=== PATIENT | female | born 1960 | race Caucasian/White ===

== ENCOUNTER → 2017-09-01 | Outpatient (CLI) | payer BC ==
[~2017-09-01] MED LIST: Abilify2 MG; B Complete1 EACH PO; CALCIUM + D3 E1 EACH PO; CALCIUM 600 MG1 EACH; DEXA4; Dexamethasone4 MG PO; FISH OIL 1,0001 EAC1; FISH1000 PO; HYDR1TAB94 PO; LAVAP17G PO; LORA1 PO; OMEG1CAP30; OXYC5 PO; PHENA200 PO; POLYOX WSR-3011 GM MC; RXPHEN200 PO; SULTRIDS PO; VENL150ER; VENL150ER PO; VITAMIN B12-FO1 EACH PO; VITAMIN D35000 UNI1 PO; ZOLP5
[2017-09-01 11:34] LABS: BASOPHILS ABSOLUTE AUTO 0.06 K/mm3 (0.00-0.23); BASOPHILS PERCENT AUTO 1 % (0-2); EOSINOPHILS ABSOLUTE AUTO 0.22 K/mm3 (0.00-0.68); EOSINOPHILS PERCENT AUTO 2 % (0-6); Hematocrit 47.4 % (33.0-51.0); Hemoglobin 16.7 g/dL (11.5-16.0); IMMATURE GRAN ABSOLUTE AUTO 0.05 K/mm3 (0.00-0.10); IMMATURE GRAN PERCENT AUTO 0 % (0-1); LYMPHOCYTES ABSOLUTE AUTO 2.11 K/mm3 (0.84-5.20); LYMPHOCYTES PERCENT AUTO 17 % (21-46); MONOCYTES ABSOLUTE AUTO 0.71 K/mm3 (0.16-1.47); MONOCYTES PERCENT AUTO 6 % (4-13); Mean Corpuscular HGB 30.6 pg (26.0-34.0); Mean Corpuscular HGB Conc 35.2 g/dL (31.5-36.5); Mean Corpuscular Volume 87 fL (80-100); Mean Platelet Volume 8.6 fL (9.1-12.4); NEUTROPHILS ABSOLUTE AUTO 9.67 K/mm3 (1.96-9.15); NEUTROPHILS PERCENT AUTO 75 % (41-73); Platelet Count 416 K/mm3 (150-400); RDW Coefficient Variation 11.8 % (11.7-14.2); RDW Standard Deviation 37.3 fL (35.1-46.3); Red Blood Cell Count 5.46 M/mm3 (3.80-5.20); White Blood Cell Count 12.82 K/mm3 (4.00-11.30)
[2017-09-01 11:45] LABS: Alanine Aminotransfer (ALT/SGP 61 U/L (12-78); Albumin, Blood 3.6 g/dL (3.4-5.0); Albumin/Globulin Ratio 0.7 (0.8-1.8); Alk Phos 142 U/L (40-126); Anion Gap 11 mmol/L (6-16); Aspartate Aminotrans (AST/SGOT 37 U/L (12-37); Bilirubin, Total 0.5 mg/dL (0.1-1.0); Blood Urea Nitrogen 11 mg/dL (8-24); Bun/Creatinine Ratio 12.6 (12.0-20.0); CO2, Blood 30 mmol/L (21-32); Calcium, Blood 10.4 mg/dL (8.5-10.1); Chloride, Blood 101 mmol/L (98-108); Creatinine, Blood 0.87 mg/dL (0.40-1.00); Globulin, Blood 5.4 g/dL (2.2-4.0); Glomerular Filtration Rate >60 (60-); Glucose, Blood 110 mg/dL (70-99); Potassium, Blood 3.8 mmol/L (3.5-5.5); Sodium, Blood 142 mmol/L (136-145)
== END | disposition home or self-care (01) ==
LOC: LAB 11:27
PROVIDERS: Physician Assistant Medical
DX: E86.0 Dehydration (principal)
CPT/HCPCS: 80053; 85025

== ENCOUNTER → 2018-06-16 | Outpatient (CLI) | payer BC | END | disposition home or self-care (01) | LOC: LAB 10:25 → LAB SHORT 10:25 | DX: A49.9 Bacterial infection, unspecified (principal) | CPT/HCPCS: 87070; 87205 ==

== ENCOUNTER 2019-01-31 06:47 | Day surgery (SDC) | payer BC ==
[~2019-01-31] VITALS: Ht 160 cm; Wt 67.2 kg
--- NOTE | 2019-01-31 09:06 | NUR ---
01/31/19 0906 Albina Keith PT STS 5/10 PAIN FOR SORE THROAT. PT REFUSED WARM FLUIDS OR ANY OTHER INTERVENTIONS AT THIS TIME.
== END 2019-01-31 09:17 | disposition home or self-care (01) ==
LOC: ORSCSDS 06:47
PROVIDERS: Internal Medicine Gastroenterology
PROC: 0DJ08ZZ Inspection of Upper Intestinal Tract, Via Natural or Artificial Opening Endoscopic (ICD-10-PCS; principal; 2019-01-31 08:00)
PROC: 0DJD8ZZ Inspection of Lower Intestinal Tract, Via Natural or Artificial Opening Endoscopic (ICD-10-PCS; principal; 2019-01-31 08:00)
DX: K21.9 Gastro-esophageal reflux disease without esophagitis (principal); Z86.010 Personal history of colon polyps; K44.9 Diaphragmatic hernia without obstruction or gangrene; K64.8 Other hemorrhoids; Z80.9 Family history of malignant neoplasm, unspecified
CPT/HCPCS: J0461; J2405; J2704; J7120

== ENCOUNTER 2020-08-01 06:15 | Day surgery (SDC) | payer BC, OTHER ==
[~2020-08-01] VITALS: Ht 160 cm; Wt 64.5 kg
[~2020-08-01 06:15] MED LIST changes: -Abilify2 MG; +Abilify2 MG PO; +BASAGLAR K100 UNIT/1 SC; +LISI20 PO; +PANT40 PO; -POLYOX WSR-3011 GM MC; +POLYOX WSR-3011 GM PO; +ZOLP5 PO
--- NOTE | 2020-08-01 06:55 | NUR ---
Ambulatory in Day Surgery History, Chart, Medications and Allergies reviewed before start of procedure.Patient confirms NPO status and agrees with scheduled surgery. Patient reports completing Chlorhexadine shower X2 prior to admission to hospital.Surgical site prepped with 2% Chlorhexidine cloth wipe. Lungs clear T/O to Auscultation. Patient States Post-Procedure ride home has been arranged WITH
--- NOTE | 2020-08-01 08:45 | NUR ---
ARRIVED INTO STEP VSS DRESSINGS INTACT RECIEVED REPORT FROM Karri CUELLO
--- NOTE | 2020-08-01 09:09 | NUR ---
DRESSED READY TO GO WAITING FOR VOLUNTEER AND WHEELCHAIR. Discharge instructions reviewed with patient. Patient verbalizes understanding. Copy given to patient to take home. Patient States Post-Procedure ride home has been arranged. Discharged via wheelchair to private car for ride home.
== END 2020-08-01 09:15 | disposition home or self-care (01) ==
LOC: ORSCMMR 06:15 → ORD 07:30 → ORSCMMR 07:30
PROVIDERS: Surgery
PROC: 0JH60WZ Insertion of Totally Implantable Vascular Access Device into Chest Subcutaneous Tissue and Fascia, Open Approach (ICD-10-PCS; principal; 2020-08-01 07:30)
DX: C25.9 Malignant neoplasm of pancreas, unspecified (principal); Z78.9 Other specified health status; K21.9 Gastro-esophageal reflux disease without esophagitis; F32.9 Major depressive disorder, single episode, unspecified; E11.9 Type 2 diabetes mellitus without complications; Z79.899 Other long term (current) drug therapy
CPT/HCPCS: 77001; 82947; C1788; J0690; J1100; J1642; J2250; J2370; J2405; J2704; J3010; J7120

== ENCOUNTER → 2020-09-16 | Outpatient (CLI) | payer BC, OTHER ==
[2020-09-16 10:29] LABS: Alanine Aminotransfer (ALT/SGP 45 U/L (12-78); Albumin, Blood 2.6 g/dL (3.4-5.0); Albumin/Globulin Ratio 0.7 (0.8-1.8); Alk Phos 237 U/L (50-136); Anion Gap 8 mmol/L (6-16); Aspartate Aminotrans (AST/SGOT 42 U/L (12-37); Bilirubin, Total 0.2 mg/dL (0.1-1.0); Blood Urea Nitrogen 4 mg/dL (8-24); Bun/Creatinine Ratio 6.6 (12.0-20.0); CO2, Blood 26 mmol/L (21-32); Calcium, Blood 8.3 mg/dL (8.5-10.1); Chloride, Blood 106 mmol/L (98-108); Creatinine, Blood 0.61 mg/dL (0.40-1.00); Globulin, Blood 3.7 g/dL (2.2-4.0); Glomerular Filtration Rate >60 (60-); Glucose, Blood 210 mg/dL (70-99); Potassium, Blood 2.7 mmol/L (3.5-5.5); Sodium, Blood 140 mmol/L (136-145); Total Protein, Blood 6.3 g/dL (6.4-8.2)
== END | disposition home or self-care (01) ==
LOC: LAB SHORT 09:46 → LAB 09:46
PROVIDERS: Registered Nurse Oncology
DX: E87.6 Hypokalemia (principal)
CPT/HCPCS: 80053

== ENCOUNTER → 2022-05-27 | Outpatient (CLI) | payer BC, OTHER | END | disposition home or self-care (01) | LOC: LAB SHORT 12:07 | DX: L30.8 Other specified dermatitis (principal) | CPT/HCPCS: 88305; 88312 ==

== ENCOUNTER → 2022-08-26 | Outpatient (CLI) | payer BC, OTHER | END | disposition home or self-care (01) | LOC: PLD 15:07 → LAB SHORT 15:07 | DX: L30.8 Other specified dermatitis (principal) | CPT/HCPCS: 88305; 88312 ==

== ENCOUNTER → 2023-01-14 | Outpatient (CLI) | payer BC, OTHER | LOC: LAB SHORT 15:02 → PLD 15:02 → LAB 15:02 | DX: D04.72 Carcinoma in situ of skin of left lower limb, including hip (principal); L57.0 Actinic keratosis | CPT/HCPCS: 88305 ==

== ENCOUNTER → 2023-02-22 | Outpatient (CLI) | payer OTHER | END | disposition home or self-care (01) | LOC: PLD 14:25 → LAB SHORT 14:25 | DX: C44.629 Squamous cell carcinoma of skin of left upper limb, including shoulder (principal) | CPT/HCPCS: 88305 ==

== ENCOUNTER 2023-04-20 10:09 | Day surgery (SDC) | payer OTHER ==
[~2023-04-20] VITALS: Ht 160 cm; Wt 61.0 kg
[2023-04-20] MEDS ORDERED: FOLI1 (10:30)
[2023-04-20] MEDS ORDERED: VENL150ER (10:30)
[2023-04-20] MEDS ORDERED: METTREX2.5 (10:31)
--- NOTE | 2023-04-20 11:39 | NUR ---
04/20/23 1139 RENA OATES PT NOT REPORTED NO BOWEL MOVEMENT AFTER PREP, ENEMA GIVEN, STILL NOT CLEAR. NOTIFIED DR SWANSON, PER HIS ORDER WE WILL PROCEED WITH UPPER, COLONOSCOPY IS TO BE SCHEDULED FOR TOMORROW. 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 PT VERBALIZED UNDERSTANDING AND DENIED ANY FURTHER QUESTIONS OR CONCERNS.
[2023-04-20 12:11] VITALS: BP 100/67
== END 2023-04-20 12:11 | disposition home or self-care (01) ==
LOC: ORSCSDS 10:09
PROVIDERS: Internal Medicine Gastroenterology
PROC: 0DBA8ZX Excision of Jejunum, Via Natural or Artificial Opening Endoscopic, Diagnostic (ICD-10-PCS; principal; 2023-04-20 11:15)
PROC: 0DB98ZX Excision of Duodenum, Via Natural or Artificial Opening Endoscopic, Diagnostic (ICD-10-PCS; principal; 2023-04-20 11:15)
DX: Z15.09 Genetic susceptibility to other malignant neoplasm (principal); Z85.07 Personal history of malignant neoplasm of pancreas; Z85.42 Personal history of malignant neoplasm of other parts of uterus; Z85.828 Personal history of other malignant neoplasm of skin; Z86.010 Personal history of colon polyps; F32.A Depression, unspecified; Z79.4 Long term (current) use of insulin; Z79.899 Other long term (current) drug therapy
CPT/HCPCS: 82947; 88305; 88342; J0461; J2001; J2405; J2704; J7120; Q9968

== ENCOUNTER 2023-04-21 11:30 | Day surgery (SDC) | payer OTHER ==
[~2023-04-21] VITALS: Ht 160 cm; Wt 60.2 kg
[~2023-04-21 11:30] MED LIST changes: +FOLI1; +METTREX2.5
--- NOTE | 2023-04-21 13:33 | NUR ---
04/21/23 1333 Marilyn Ferguson PROCEDURE ABORTED DUE TO POOR PREP, ABORTED AT RECTUM. CHANGED TO FLEX SIGMOIDOSCOPY
[2023-04-21 13:52] VITALS: BP 117/78
== END 2023-04-21 14:01 | disposition home or self-care (01) ==
LOC: ORSCSDS 11:30
PROVIDERS: Internal Medicine Gastroenterology
PROC: 0DJD8ZZ Inspection of Lower Intestinal Tract, Via Natural or Artificial Opening Endoscopic (ICD-10-PCS; principal; 2023-04-21 12:45)
DX: Z15.09 Genetic susceptibility to other malignant neoplasm (principal); Z86.010 Personal history of colon polyps; Z85.42 Personal history of malignant neoplasm of other parts of uterus; Z85.07 Personal history of malignant neoplasm of pancreas
CPT/HCPCS: 82947; J2704; J7120

== ENCOUNTER 2023-10-12 06:34 | Day surgery (SDC) | payer OTHER ==
[~2023-10-12] VITALS: Ht 157.5 cm; Wt 63.5 kg
[2023-10-12] VITALS (18 sets, daily range): BP systolic 105–141; BP diastolic 69–88
[~2023-10-12 06:34] MED LIST changes: +CeFAZolin Sodium 2,000 MG in NS 100 ML IV SCH; -FOLI1; +FOLI1 PO; +INSULANI SC; +KLOR-CON 1010 ME9 PO; +Lactated Ringer's 1,000 ML IV SCH; -METTREX2.5; +METTREX2.5 PO
[2023-10-12] MEDS ORDERED: Bupivacaine 0.5% HCl 5 MG/ML 30MLVIAL ONE (07:09)
--- NOTE | 2023-10-12 07:17 | NUR ---
Wheelchaired into Day Surgery. History, Chart, Medications and Allergies reviewed before start of procedure. Pre-Op teaching done. Pt verbalizes understanding.
[2023-10-12] MEDS ORDERED: propofoL 20 ML IV ONE (07:24)
[2023-10-12] MEDS ORDERED: FentaNYL Citrate 50 MCG/ML 5 ML Injection ONE (07:24)
[2023-10-12] MEDS ORDERED: Ondansetron HCl 2 MG / ML 2ML Vial ONE ×2 (07:25→09:06)
[2023-10-12] MEDS ORDERED: Dexamethasone Sod Phos 10 MG/ML 1ML VIAL ONE (07:25)
[2023-10-12] MEDS ORDERED: Rocuronium Bromide 10 MG/ML 5ML Injection IV ONE (07:27)
[2023-10-12] MEDS ORDERED: Phenylephrine HCl 100 MCG/ML-NS 10MLSYR (1MG/10ML) ONE (07:40)
[2023-10-12] MEDS ORDERED: ePHEDrine Sulfate 50 MG/ML 1ML Injection ONE (08:05)
[2023-10-12] MEDS ORDERED: HYDROcodone 5-APAP 325 TAB PO PRN (08:55)
[2023-10-12] MEDS ORDERED: FentaNYL Citrate 50 MCG/ML 2 ML Injection IV PRN (08:55)
[2023-10-12] MEDS ORDERED: Sugammadex Sodium 200 MG/2ML SDV (100 MG/ML) ONE (08:59)
[2023-10-12] MEDS ORDERED: ARIPiprazole 2 MG Tablet PO SCH (09:00)
[2023-10-12] MEDS ORDERED: Ondansetron HCl 2 MG / ML 2ML Vial IV PRN (09:00)
[2023-10-12] MEDS ORDERED: Folic Acid 1 MG TAB PO SCH (09:00)
[2023-10-12] MEDS ORDERED: Docusate Sodium 100 MG Cap PO SCH (09:00)
[2023-10-12] MEDS ORDERED: Lisinopril 20 MG Tab PO SCH (09:00)
[2023-10-12] MEDS ORDERED: Ondansetron 4 MG TAB PO PRN (09:00)
[2023-10-12] MEDS ORDERED: Potassium Chloride 10 Meq Tablet SA PO SCH (09:00)
[2023-10-12] MEDS ORDERED: Venlafaxine HCl 75 MG CapCR PO SCH (09:00)
[2023-10-12] MEDS ORDERED: Lactated Ringer's 1,000 ML IV SCH (09:00)
[2023-10-12] MEDS ORDERED: Prochlorperazine Edisylate 10 mg Vial ONE (09:14)
[2023-10-12] MEDS ORDERED: Insulin Regular 100 UNIT/ML 10ML Vial SC SCH (12:00)
--- NOTE | 2023-10-12 16:02 | NUR ---
SHIFT SUMMARY PATIENT POD0 FOR INCISIONAL HERNIA /W MESH. MEDIPORE DRESSING TO MID UPPER ABD. C/D/I. MILD DISTENTION IN ABD NOTED. PATIENT BLADDER SCANNED FOR 682 VOIDED 300 SPONTANEOUSLY. TOLERATED SOME SIPS AND CHIPS. DENIES PAIN, DENIES NAUSEA. PATIENT HAS BEEN DROWSY TODAY. IS ABLE TO AMBULATE WITH FWW AND 1 ASSIST. PATIENT IS AOX4, BED ALARM IS ON FOR SAFETY. SCDS IN PLACE. CALL LIGHT IN REACH.
--- NOTE | 2023-10-12 16:13 | NUR ---
Pt. is awake in bed and welcomes my visit. Pt. is pleasant. Facilitated a life review and listen with empathy and a calming presence. Pt. verbalized about the relatively recent loss of her only son. Again listen with a pastoral perspective. Considered matters of zuri and belief. Pt. displayed evidence of being at peace with God, but also verbalized her intention to work at recovery as much as she can. Prayed with the Pt. Pt. verbalized gratitude for the spiritual care visit and welcomed this linoleum floor layer to return.
[2023-10-13 00:15] VITALS: BP 125/83
[2023-10-13 04:27] VITALS: BP 125/79
--- NOTE | 2023-10-13 05:30 | NUR ---
SHIFT SUMMARY NO ACUTE CHANGES TO REPORT OVERNIGHT. PT POD 0 HERNIA REPAIR. PT HAS RESTED T/O THE SHIFT, SHE DENIES PAIN. SURGICAL SITE WNL. SHE HAS BEEN UP AND AMBULATING AND IS VOIDING. POST OP VITALS STABLE. BED IN LOWEST POSITION, CALL LIGHT WITHIN REACH.
[2023-10-13 05:59] LABS: BASOPHILS ABSOLUTE AUTO 0.06 K/mm3 (0.00-0.23); BASOPHILS PERCENT AUTO 1 % (0-2); EOSINOPHILS ABSOLUTE AUTO 0.04 K/mm3 (0.00-0.68); EOSINOPHILS PERCENT AUTO 0 % (0-6); Hematocrit 25.7 % (33.0-51.0); Hemoglobin 8.9 g/dL (11.5-16.0); IMMATURE GRAN ABSOLUTE AUTO 0.06 K/mm3 (0.00-0.10); IMMATURE GRAN PERCENT AUTO 1 % (0-1); LYMPHOCYTES ABSOLUTE AUTO 1.36 K/mm3 (0.84-5.20); LYMPHOCYTES PERCENT AUTO 13 % (21-46); MONOCYTES ABSOLUTE AUTO 0.42 K/mm3 (0.16-1.47); MONOCYTES PERCENT AUTO 4 % (4-13); Mean Corpuscular HGB 35.3 pg (26.0-34.0); Mean Corpuscular HGB Conc 34.6 g/dL (31.5-36.5); Mean Corpuscular Volume 102 fL (80-100); Mean Platelet Volume 8.9 fL (9.1-12.4); NEUTROPHILS ABSOLUTE AUTO 8.26 K/mm3 (1.96-9.15); NEUTROPHILS PERCENT AUTO 81 % (41-73); Platelet Count 163 K/mm3 (150-400); RDW Coefficient Variation 14.4 % (11.7-14.2); RDW Standard Deviation 52.9 fL (35.1-46.3); Red Blood Cell Count 2.52 M/mm3 (3.80-5.20)
[2023-10-13 06:31] LABS: Bun/Creatinine Ratio 12.5 (12.0-20.0); Calcium, Blood 8.8 mg/dL (8.5-10.1); Creatinine, Blood 0.96 mg/dL (0.40-1.00); Potassium, Blood 4.3 mmol/L (3.5-5.5)
[2023-10-13 07:06] VITALS: BP 120/74
[2023-10-13] MEDS ORDERED: Insulin Regular 100 UNIT/ML 10ML Vial SC SCH (07:30)
[2023-10-13 14:42] VITALS: BP 108/71
--- NOTE | 2023-10-13 17:26 | NUR ---
DISCHARGE NOTE PT WHEELED OUT VIA WHEELCHAIR TO FRIEND WHO WAS DRIVING HER HOME. VSS. DENIES N/V. INCISION SITE COVERED WITH STERI STRIP, FREE OF DRAINAGE. PT PASSED A SMALL BOWEL MOVEMENT JUST PRIOR TO CHANGING INTO HER PERSONAL CLOTHING. EATING DRINKING VOIDING EASILY. HAS DECLINED PAIN MEDICATION T/O SHIFT, STATES THAT SHE IS COMFORTABLE.
== END 2023-10-13 17:15 | disposition home or self-care (01) ==
LOC: ORSCMMR 06:34 → ORD 07:30 → SURS 09:36 → ORSCMMR 10-13 17:15
PROVIDERS: Surgery
PROC: 0WUF0JZ Supplement Abdominal Wall with Synthetic Substitute, Open Approach (ICD-10-PCS; principal; 2023-10-12 07:30)
DX: K43.2 Incisional hernia without obstruction or gangrene (principal); I10 Essential (primary) hypertension; E11.9 Type 2 diabetes mellitus without complications; Z79.4 Long term (current) use of insulin; Z79.899 Other long term (current) drug therapy; Z85.07 Personal history of malignant neoplasm of pancreas; Z85.42 Personal history of malignant neoplasm of other parts of uterus
CPT/HCPCS: 36415; 80048; 82947; 85025; A9270; C1781; J0690; J0780; J1100; J2371; J2405; J2704; J3010; J7120

== ENCOUNTER 2024-03-27 10:41 | Day surgery (SDC) | payer OTHER ==
[~2024-03-27] VITALS: Ht 160 cm; Wt 64.4 kg
[~2024-03-27 10:41] MED LIST changes: -CeFAZolin Sodium 2,000 MG in NS 100 ML IV SCH; +Lactated Ringer's 1,000 ML IV ONE; -Lactated Ringer's 1,000 ML IV SCH
[2024-03-27] MEDS ORDERED: Dextrose 5% 250 ML IV ONE (12:10)
[2024-03-27] MEDS ORDERED: FOLI1 (12:11)
[2024-03-27] MEDS ORDERED: METTREX2.5 (12:11)
[2024-03-27] MEDS ORDERED: Dextrose 10% 250 ML IV ONE (12:20)
[2024-03-27] MEDS ORDERED: propofoL 50 ML IV ONE (12:22)
--- NOTE | 2024-03-27 12:26 | NUR ---
03/27/24 1226 Dinora Robertson [facility] NOTIFIED JDAON BARRY THAT PT'S CBG WAS 15 AND THAT THE PATIENT STATES SHE IS FEELING FINE. JADON BARRY SPOKE WITH DR. TAPIA REGARDING PATIENT AND WAS INSTRUCTED TO HAVE THE PATIENT RETESTED. PT SECOND CBG WAS 30. DR. TAPIA NOTIFIED AND WANTED PT TO RECEIVE A BOLUS OF D5W AND THEN TO HAVE THE PT'S CBG RETESTED. HE WOULD ALSO LIKE PT TO HAVE A SECOND IV PLACED TO RUN LR DURING HER COLONOSCOPY FOR PROPOFOL PUSHES AND THEN CONTINUE TO RUN D5W. JADON BARRY GAVE REPORT REGARDING PATIENTS CONDITION AND DR. TAPIAS ORDERS TO PT'S NURSE RENA DIOP, WHO VERBALIZED UNDERSTANDING.
[2024-03-27] MEDS ORDERED: Lactated Ringer's 1,000 ML IV ONE (12:30)
[2024-03-27 14:11] VITALS: BP 105/70
== END 2024-03-27 14:18 | disposition home or self-care (01) ==
LOC: ORSCSDS 10:41
PROVIDERS: Internal Medicine Gastroenterology
PROC: 0DJD8ZZ Inspection of Lower Intestinal Tract, Via Natural or Artificial Opening Endoscopic (ICD-10-PCS; principal; 2024-03-27 11:45)
DX: Z12.11 Encounter for screening for malignant neoplasm of colon (principal); Z86.0101 Personal history of adenomatous and serrated colon polyps; Z15.09 Genetic susceptibility to other malignant neoplasm; Z85.07 Personal history of malignant neoplasm of pancreas; Z85.42 Personal history of malignant neoplasm of other parts of uterus; Z85.828 Personal history of other malignant neoplasm of skin; F32.A Depression, unspecified; E11.9 Type 2 diabetes mellitus without complications; Z79.4 Long term (current) use of insulin; Z79.84 Long term (current) use of oral hypoglycemic drugs; Z79.899 Other long term (current) drug therapy
CPT/HCPCS: 82947; J2704; J7060; J7120

== ENCOUNTER 2024-12-11 11:48 | Day surgery (SDC) | payer OTHER ==
[~2024-12-11] VITALS: Ht 160 cm; Wt 64.4 kg
[~2024-12-11 11:48] MED LIST changes: +FOLI1; -Lactated Ringer's 1,000 ML IV ONE; +METTREX2.5; +propofoL 50 ML IV ONE
[2024-12-11] MEDS ORDERED: DEXCOM G7 SENS1 EACH (12:46)
[2024-12-11] MEDS ORDERED: Lactated Ringer's 1,000 ML IV ONE (12:52)
--- NOTE | 2024-12-11 14:54 | NUR ---
12/11/24 1454 Dinora Robertson RN NOTICED THE BEGINNINGS OF A BEDSORE NEAR THE PATIENTS [facility]. RN WILL DISCUSS WITH PATIENT AT DISCHARGE AND ENCOURAGE PATIENT TO CONTACT PCP IN REGARDS TO TREATING THE BEDSORE.
[2024-12-11 15:32] VITALS: BP 132/67
--- NOTE | 2024-12-11 15:52 | NUR ---
12/11/24 2904 NICOLE ANN MD MADE AWARE FACE TO FACE BY THIS RN AND IS AWARE BG 67 AT TIME OF DISCHARGE AND OKAY WITH PT DC AT THIS TIME.
== END 2024-12-11 15:50 | disposition home or self-care (01) ==
LOC: ORSCSDS 11:48
PROVIDERS: Internal Medicine Gastroenterology
PROC: 0DJ08ZZ Inspection of Upper Intestinal Tract, Via Natural or Artificial Opening Endoscopic (ICD-10-PCS; principal; 2024-12-11 13:15)
PROC: 0DJD8ZZ Inspection of Lower Intestinal Tract, Via Natural or Artificial Opening Endoscopic (ICD-10-PCS; principal; 2024-12-11 13:15)
DX: Z15.09 Genetic susceptibility to other malignant neoplasm (principal); Z86.0101 Personal history of adenomatous and serrated colon polyps; Z85.07 Personal history of malignant neoplasm of pancreas; Z85.42 Personal history of malignant neoplasm of other parts of uterus; I10 Essential (primary) hypertension; E11.9 Type 2 diabetes mellitus without complications; Z79.4 Long term (current) use of insulin; Z79.899 Other long term (current) drug therapy
CPT/HCPCS: 82947; J2704